=== PATIENT | female | born 1935 | race Caucasian/White ===

== ENCOUNTER 2019-03-31 21:52 | Inpatient (IN) | payer OTHER, MEDICAID ==
[~2019-03-31] VITALS: Ht 162.6 cm; Wt 70.3 kg
[2019-03-31] MEDS ORDERED: MORPHINE SULFATE 4 MG/ML CPJ (NOT FOR IM USE) IV STA (22:31)
[2019-03-31] MEDS ORDERED: ONDANSETRON HCL 4MG/2ML INJ IV STA (22:31)
[2019-03-31] MEDS ORDERED: CALCIUM GLUCONATE 100MG/ML 10ML VIAL IV ONE (22:45)
[2019-03-31] MEDS ORDERED: LABETALOL HCL 20MG/4ML CARPUJECT IV ONE (22:45)
[2019-03-31 22:52] LABS: BASOPHILS % 0.4 % (0.0-2.0); EOSINOPHILS % 1.6 % (0.0-5.0); HEMATOCRIT. 34.4 % (36.0-48.0); HEMOGLOBIN. 11.6 g/dL (12.0-16.0); MEAN PLATELET VOLUME 9.5 fl (7.4-10.4); MONOCYTES % 10.5 % (2.0-8.0); NEUTROPHILS % 72.5 % (40.0-76.0); PLATELET 219 x1000/uL (130-400); RED BLOOD CELL COUNT 3.86 mill/uL (4.2-5.4); RED CELL DISTRIBUTION WIDTH 13.4 % (11.6-14.6)
[2019-03-31 22:59] LABS: CHLORIDE 104 mEq/L (98-107)
[2019-03-31] MEDS ORDERED: LABETALOL 5MG/ML SYR 20 MG/4 ML SYRINGE IV NR (23:00)
[2019-04-01] MEDS ORDERED: MAGNESIUM/ALUMINUM HYDROXIDE/SIMETHICONE 30ML UDC PO PRN (02:15)
[2019-04-01] MEDS ORDERED: IPRATROPIUM/ALBUTEROL 0.5-3(2.5)MG/3ML NEB NEB PRN (02:15)
[2019-04-01] MEDS ORDERED: DIPHENHYDRAMINE 50MG/ML VIAL IV PRN (02:15)
[2019-04-01] MEDS ORDERED: HYDROCODONE/ACETAMINOPHEN 5/325MG TABLET PO PRN (02:15)
[2019-04-01] MEDS ORDERED: GUAIFENESIN 200MG/10ML SUGAR FREE UDC PO PRN (02:15)
[2019-04-01] MEDS ORDERED: ENOXAPARIN 40MG/0.4ML SYR SUBCUT SCH (02:15)
[2019-04-01] MEDS ORDERED: ONDANSETRON HCL 4MG/2ML INJ IV PRN (02:15)
[2019-04-01] MEDS ORDERED: HYDROMORPHONE HCL/PF 2MG/ML CPJ IV PRN (02:15)
[2019-04-01] MEDS ORDERED: DOCUSATE SODIUM 100MG CAPSULE PO PRN (02:15)
[2019-04-01] MEDS ORDERED: LORAZEPAM 0.5MG TABLET PO PRN (02:15)
[2019-04-01] MEDS: ACETAMINOPHEN 325MG TABLET PO PRN (05:54)
[2019-04-01] MEDS: ASPIRIN 81MG EC TABLET PO SCH (09:00)
[2019-04-01] MEDS ORDERED: NA PHOS,M-B/NA PHOS,DI-BA ENEMA 118ML PR PRN (10:00)
[2019-04-01 10:30] VITALS: BP 182/82
[2019-04-01] MEDS ORDERED: LOPHC2 PO (10:41)
[2019-04-01] MEDS ORDERED: AMLO5TAB88 PO (10:41)
[2019-04-01] MEDS ORDERED: ISOS30TA6 PO (10:41)
[2019-04-01] MEDS ORDERED: OMEP40CA12 PO (10:41)
[2019-04-01] MEDS: CLONIDINE 0.1MG TABLET PO PRN (10:58)
[2019-04-01 12:00] VITALS: BP 137/62
[2019-04-01] MEDS: ENOXAPARIN 40MG/0.4ML SYR SUBCUT SCH (12:19)
[2019-04-01 16:00] VITALS: BP 150/64
[2019-04-01 20:00] VITALS: BP 174/74
[2019-04-01] MEDS: METOPROLOL TARTRATE 25MG TABLET PO SCH (20:54)
[2019-04-02] VITALS: BP 157/58
[2019-04-02 03:58] VITALS: BP 131/65
[2019-04-02] MEDS: ACETAMINOPHEN 325MG TABLET PO PRN (04:00)
[2019-04-02 08:00] VITALS: BP 156/66
[2019-04-02] MEDS ORDERED: LISINOPRIL 2.5MG TABLET PO SCH (09:00)
[2019-04-02] MEDS: METOPROLOL TARTRATE 25MG TABLET PO SCH (09:00)
[2019-04-02] MEDS: ENOXAPARIN 40MG/0.4ML SYR SUBCUT SCH (09:24)
[2019-04-02 09:25] LABS: BASOPHILS % 0.9 % (0.0-2.0); HEMATOCRIT. 35.2 % (36.0-48.0); HEMOGLOBIN. 11.7 g/dL (12.0-16.0); LYMPHOCYTES % 30.8 % (20.0-50.0); MEAN CORPUSCULAR HEMOGLOBIN 29.6 pg (28.0-32.0); MEAN CORPUSCULAR VOLUME 88.8 fL (81.0-99.0); MEAN PLATELET VOLUME 9.4 fl (7.4-10.4); MONOCYTES % 10.8 % (2.0-8.0); NEUTROPHILS % 53.5 % (40.0-76.0); PLATELET 218 x1000/uL (130-400); RED BLOOD CELL COUNT 3.97 mill/uL (4.2-5.4); RED CELL DISTRIBUTION WIDTH 13.3 % (11.6-14.6)
[2019-04-02] MEDS: ASPIRIN 81MG EC TABLET PO SCH (09:26)
[2019-04-02 10:21] LABS: CHLORIDE 105 mEq/L (98-107)
[2019-04-02 10:30] LABS: LDL CHOLESTEROL 67 mg/dL (5-100)
[2019-04-02 10:33] LABS: HDL CHOLESTEROL 73 mg/dL (40-59); T4 FREE 1.04 ng/dL (0.76-1.46)
[2019-04-02 12:00] VITALS: BP 141/60
[2019-04-02 16:00] VITALS: BP 176/69
[2019-04-02] MEDS: CLONIDINE 0.1MG TABLET PO PRN (18:11)
[2019-04-02 20:00] VITALS: BP 106/56
== END 2019-04-02 21:00 | disposition short-term general hospital (02) | DRG 206 ==
LOC: ER 21:52 → 8WST 04-01 00:10 → ENRESERV 04-01 09:31 → 8WST 04-01 11:08
PROVIDERS: ADMIT Internal Medicine; ATTEND Internal Medicine
DX: M94.0 Chondrocostal junction syndrome [Tietze] (principal); I16.9 Hypertensive crisis, unspecified; I25.10 Atherosclerotic heart disease of native coronary artery without angina pectoris; I10 Essential (primary) hypertension; M19.90 Unspecified osteoarthritis, unspecified site; K21.9 Gastro-esophageal reflux disease without esophagitis; E78.00 Pure hypercholesterolemia, unspecified; I44.7 Left bundle-branch block, unspecified; E78.5 Hyperlipidemia, unspecified; Z96.659 Presence of unspecified artificial knee joint; Z88.5 Allergy status to narcotic agent
CPT/HCPCS: 36415; 71045; 80048; 80053; 80061; 83880; 84439; 84443; 84484; 85025; 93005; 93306; 96372; 96374; 96375; 99291; J0610; J1650; J2405; J3490

== ENCOUNTER 2023-08-15 07:11 | Emergency (ER) | payer OTHER, MEDICAID ==
[~2023-08-15] VITALS: Ht 154.9 cm; Wt 68.0 kg
[~2023-08-15 07:11] MED LIST: AMLO5TAB88 PO; ISOS30TA91 PO; LOPHC2 PO; OMEP40CA20 PO
[2023-08-15 07:18] VITALS: O2SAT 97
[2023-08-15] MEDS: ASPIRIN 81MG TABLET PO ONE (08:50)
[2023-08-15] MEDS: NITROGLYCERIN 0.4MG TABLET SL SL PRN (08:51)
[2023-08-15 08:53] LABS: BASOPHILS % 0.3 % (0.0-2.0); EOSINOPHILS % 0.1 % (0.0-5.0); HEMATOCRIT. 36.8 % (36.0-48.0); HEMOGLOBIN. 12.2 g/dL (12.0-16.0); LYMPHOCYTES % 9.8 % (20.0-50.0); MEAN CORPUSCULAR HEMOGLOBIN 29.4 pg (28.0-32.0); MEAN CORPUSCULAR HGB CONC 33.2 g/dL (31.0-37.0); MEAN CORPUSCULAR VOLUME 88.6 fL (81.0-99.0); MEAN PLATELET VOLUME 8.6 fl (7.4-10.4); MONOCYTES % 7.5 % (2.0-8.0); NEUTROPHILS % 82.3 % (40.0-76.0); PLATELET 244 x1000/uL (130-400); RED BLOOD CELL COUNT 4.15 mill/uL (4.2-5.4); RED CELL DISTRIBUTION WIDTH 13.9 % (11.6-14.6); WHITE BLOOD COUNT 11.7 x1000/uL (4.5-11.0)
[2023-08-15 09:02] LABS: CHLORIDE 104 mEq/L (98-107); POTASSIUM 4.1 mEq/L (3.5-5.1); SODIUM 138 mEq/L (136-145)
[2023-08-15 09:03] LABS: CALCIUM 8.7 mg/dL (8.7-10.4); CARBON DIOXIDE 29 mEq/L (21-32)
[2023-08-15 09:08] LABS: CREATININE 0.9 mg/dL (0.6-1.0); GLUCOSE 118 mg/dL (70-105); UREA NITROGEN BLOOD 13 mg/dL (9-23)
[2023-08-15 09:10] LABS: TROPONIN I HIGH SENSITIVITY 14 ng/L (3.0-34)
[2023-08-15] MEDS: METOCLOPRAMIDE HCL 10MG/2ML VIAL IV ONE (09:18)
[2023-08-15] MEDS: DILTIAZEM HCL 5MG/ML 5ML VIAL IV ONE (10:53)
[2023-08-15 11:23] VITALS: BP 130/55; PULSE 82; RESP 20; TEMP 98.4
== END 2023-08-15 11:28 | disposition short-term general hospital (02) ==
LOC: ER 07:50 → CANBEDREQ 11:23 → ER 11:28
DX: R07.9 Chest pain, unspecified (principal); I10 Essential (primary) hypertension; Z88.6 Allergy status to analgesic agent
CPT/HCPCS: 99291; 96374; 96375; 80048; 83880; 85025; 84484; 36415; 71045; 93005; J3490; J2765